=== PATIENT | female | born 1985 | race Caucasian/White ===

== ENCOUNTER 2018-06-19 20:08 | Emergency (ER) | payer OTHER, SELFPAY ==
[2018-06-19 20:08] VITALS: BMI 34.0
--- NOTE | 2018-06-19 21:17 | ED PDOC ---
HPI: Back Time Seen by Provider: 06/19/18 20:58 Chief Complaint (Nursing): Back Pain History Per: Patient History/Exam Limitations: no limitations Additional Complaint(s): 33 yo F is currently ~6wks , c/o low back pain, pelvic pain and vaginal spotting which started today. Denies any fever, chills, vomiting, diarrhea, urinary symptoms. Has no other complaints. (-) care or prior US. Past Medical History Vital Signs: Last Vital Signs Temp 98.5 F 06/19/18 20:42 Pulse 76 06/19/18 20:42 Resp 18 06/19/18 20:42 BP 125/82 06/19/18 20:42 Pulse Ox 98 06/19/18 20:42 - Family History Family History: States: No Known Family Hx - Home Medications Home Medications: Ambulatory Orders Medication Instructions Recorded Nitrofurantoin Macrocrystals 100 mg PO BID #20 cap 06/20/18 [Macrobid] Multivit/Folic Acid/I 1 tab PO DAILY #30 tab 06/20/18 [] - Allergies Allergies/Adverse Reactions: Allergies Allergy/AdvReac Type Severity Reaction Status Date / Time No Known Allergies Allergy Verified 07/18/14 20:53 Review of Systems Constitutional: Negative for: Fever, Malaise Cardiovascular: Negative for: Chest Pain, Palpitations Respiratory: Negative for: Cough, Shortness of Breath Gastrointestinal: Positive for: Abdominal Pain. Negative for: Nausea, Vomiting Genitourinary Female: Positive for: Vaginal Bleeding. Negative for: Dysuria, Frequency, Vaginal Discharge Musculoskeletal: Positive for: Back Pain. Negative for: Neck Pain Skin: Negative for: Rash, Lesions Physical Exam - Reviewed Vital Signs Reviewed: Yes - Physical Exam Appears: Positive for: Well, Non-toxic, No Acute Distress Head Exam: Positive for: ATRAUMATIC, NORMAL INSPECTION, NORMOCEPHALIC Skin: Positive for: Normal Color, Warm, DRY Eye Exam: Positive for: EOMI, Normal appearance, PERRL ENT: Positive for: Normal ENT Inspection Neck: Positive for: Normal, Painless ROM, Supple Cardiovascular/Chest: Positive for: Regular Rate, Rhythm. Negative for: Murmur Respiratory: Positive for: Normal Breath Sounds. Negative for: Rhonchi, Wheezing Gastrointestinal/Abdominal: Positive for: Normal Exam, Soft. Negative for: Tenderness, Mass, Guarding, Rebound Back: Positive for: Normal Inspection. Negative for: L CVA Tenderness, R CVA Tenderness, Vertebral Tenderness Extremity: Positive for: Normal ROM. Negative for: Tenderness, Swelling Neurologic/Psych: Positive for: Alert, photo engraver II-XII (intact), Oriented (x3). Negative for: Motor/Sensory Deficits - Laboratory Results Result Diagrams: 06/19/18 22:30 06/19/18 22:30 - ECG O2 Sat by Pulse Oximetry: 98 Medical Decision Making Medical Decision Making: Plan : - Labs - Udip - US TV Uhcg : (+) Udip : +large leuks, +moderate blood Labs reviewed : O+, beta quant 53,575 US TV : FINDINGS: Gestation: Single live intrauterine . A yolk sac is identified. pole is seen with a crown-rump length of 0.6 cm, estimating a gestational age of 6 weeks and 3 days. Cardiac activity is detected with heart rate of 141 beats per minute. Cervix is closed. Placenta/amniotic fluid: Cannot be adequately evaluated due to the early gestational age. Uterus/cervix: Unremarkable. No myometrial mass. Ovaries: Unremarkable. No mass. Free fluid: No free fluid. IMPRESSION: Single live intrauterine with an estimate of gestational age of 6 weeks and 3 days. Dictated and Authenticated by: Luiz Yoder MD 06/19/2018 10:57 PM Eastern Time ([place] & [place]) On re-evaluation, patient reports no vaginal bleeding. On exam, patient remains AAOx3, in no acute distress. Abdomen soft, non-tender. Diagnostic results d/w the patient in great detail. Patient medicated with macrobid po for UTI. Patient instructed to follow-up with new accounts banking representative in 2 days without fail. Advised to take medication as prescribed. Return to the emergency room at any time for any new or worsening symptoms. Patient states she fully agrees with and understands discharge instructions. States that she agrees with the plan and disposition. Verbalized and repeated discharge instructions and plan. I have given the patient opportunity to ask any additional questions. Disposition - Clinical Impression Clinical Impression: UTI (urinary tract infection), Abdominal pain during - Patient ED Disposition Is Patient to be Admitted: No Counseled Patient/Family Regarding: Studies Performed, Diagnosis, Need For Followup, Rx Given - Disposition Referrals: [facility] [Outside] [facility] [Outside] Disposition: Routine/Home Disposition Time: 00:00 Condition: STABLE Additional Instructions: Thank you for letting us take care of you today. You were treated for UTI, , abdominal pain. The emergency medical care you received today was directed towards the acute presenting symptoms. If you were prescribed any medication, please fill it and give as directed. It may take several days for your symptoms to resolve. Return to the Emergency Department at any time if symptoms worsen, do not improve, or if any other problems arise. Please contact new accounts banking representative in 2 days for re-evaluation and follow up. Bring any paperwork you were given at discharge with you along with any medications to your follow up visit. Our treatment cannot replace ongoing medical care by a primary care provider (PCP) outside of the emergency department. Thank you for allowing the [facility] team to be part of your care today. If you had a urine culture test done : We will call you regarding any positive results Prescriptions: Nitrofurantoin Macrocrystals [Macrobid] 100 mg PO BID #20 cap Multivit/Folic Acid/I [] 1 tab PO DAILY #30 tab Instructions: Urinary Tract Infections in Adults, Acute Abdomen (Belly Pain) Forms: [employer] (Brazilian), [facility] ED School/Work Excuse Print Language: NORWEGIAN
[2018-06-19 22:46] LABS: BASO # 0.1 K/uL (0.0-0.2); BASO % 0.8 % (0.0-2.0); EOS # 0.5 K/uL (0.0-0.7); EOS % 3.2 % (0.0-4.0); HEMOGLOBIN 12.5 g/dL (12.0-16.0); LYMPH # 3.9 K/uL (1.0-4.3); LYMPH % 26.6 % (20.0-40.0); MEAN CELL VOLUME 92.7 fl (81.0-99.0); MEAN CORPUSCULAR HEMOGLOBIN 30.6 pg (27.0-31.0); MEAN PLATELET VOLUME 8.9 fl (7.2-11.7); MONO # 1.1 K/uL (0.0-0.8); MONO % 7.7 % (0.0-10.0); NEUT # 9.1 K/uL (1.8-7.0); NEUT % 61.7 % (50.0-75.0); NRBC % 0.1 % (0.0-0.0); RBC 4.08 Mil/uL (3.80-5.20); RED CELL DISTRIBUTION WIDTH 14.7 % (11.5-14.5); WHITE BLOOD COUNT 14.7 K/uL (4.8-10.8)
[2018-06-19 22:57] LABS: BLOOD UREA NITROGEN 9 mg/dl (7-17); CALCIUM 9.2 mg/dL (8.4-10.2); GFR AFRICAN-AMERICAN > 60; GFR NON-AFRICAN AMERICAN > 60
[2018-06-20 01:41] VITALS: BP 118/68; PULSE 78; RESP 14; TEMP 98.2
[2018-06-20 02:32] VITALS: O2SAT 98
--- NOTE | 2018-06-20 09:30 | US ---
Date of service: 06/19/2018 PROCEDURE: OB Pelvic Ultrasound HISTORY: bleeding, 6 weeks preg LMP: 05/05/2018 COMPARISON: No relevant prior imaging. FINDINGS: UTERUS: Gestational sac: Single intrauterine gestation. Measures 2.1 cm compatible with estimated gestational age of 6 weeks, 4 days. Yolk sac: Measures 0.3 cm. pole: [place]-rump length measures 0.6 cm compatible with estimated gestational age of 6 weeks, 3 days. Heart rate: 141 bpm. age (Ultrasound estimated): 6 weeks, 4 days Kristi-gestational hemorrhage: None. Date of delivery (Ultrasound estimated) : 02/08/2019 Uterus measures 8.8 x 4.7 x 5.1 cm. Anteverted. Normal in size and appearance. CERVIX: Measures 3.8 cm. Long and closed. No cervical abnormality seen. RIGHT OVARY: Measures 2.2 x 1.3 x 2.6 cm. No mass lesion. Normal flow. LEFT OVARY: Measures 2.6 x 1.9 x 1.8 cm. No solid mass. Normal flow. FREE FLUID: None. OTHER FINDINGS: None. IMPRESSION: Single live intrauterine gestation with average ultrasound age 6 weeks, 4 days. heart rate 141 beats per minute. Cervix long and closed.
== END 2018-06-20 00:30 | disposition home or self-care (01) ==
LOC: H.ER 20:08
DX: O23.41 Unspecified infection of urinary tract in pregnancy, first trimester (principal); O26.891 Other specified pregnancy related conditions, first trimester; Z3A.01 Less than 8 weeks gestation of pregnancy

== ENCOUNTER 2018-08-07 10:09 | Emergency (ER) | payer SELFPAY ==
[2018-08-07 10:10] VITALS: BMI 34.0
[2018-08-07 10:15] VITALS: RESP 17
--- NOTE | 2018-08-07 11:15 | ED PDOC ---
HPI: Female Pain Time Seen by Provider: 08/07/18 10:55 Chief Complaint (Nursing): Female Genitourinary Chief Complaint (Provider): Female Genitourinary History Per: Patient History/Exam Limitations: no limitations Onset/Duration Of Symptoms: Hrs (x 12) Current Symptoms Are (Timing): Still Present Quality Of Discomfort: "Pain" Additional Complaint(s): 33 year old female presents to the ED with mild vaginal bleeding and intermittent abdominal pain since early this morning. Patient reports after intercourse last night, she experienced mild vaginal bleeding that resolved by 2 am. This morning she started to have intermittent and sharp suprapubic pain, ranked as 5/10. She did not take any medications before arrival. Her previous pregnancies were delivered vaginally and patient has history of placenta previa. Patient's only care was in this ED on June 19 and daily vitamins. Offers no other complaints. PMD: none Abnormal Vaginal Bleeding: Yes Last Menstral Period: May 05 : 3 Para: 2 Past Medical History Reviewed: Historical Data, Nursing Documentation, Vital Signs Vital Signs: Last Vital Signs Temp 98.8 F 08/07/18 10:14 Pulse 95 H 08/07/18 10:14 Resp 17 08/07/18 10:14 BP 126/77 08/07/18 10:14 Pulse Ox 99 08/07/18 10:14 - Medical History PMH: No Chronic Diseases - Surgical History Surgical History: No Surg Hx - Family History Family History: States: Unknown Family Hx - Social History Current smoker - smoking cessation education provided: No Alcohol: None Drugs: Denies - Home Medications Home Medications: Ambulatory Orders Medication Instructions Recorded Nitrofurantoin Macrocrystals 100 mg PO BID #20 cap 06/20/18 [Macrobid] Multivit/Folic Acid/I 1 tab PO DAILY #30 tab 06/20/18 [] - Allergies Allergies/Adverse Reactions: Allergies Allergy/AdvReac Type Severity Reaction Status Date / Time No Known Allergies Allergy Verified 08/07/18 10:54 Review of Systems ROS Statement: Except As Marked, All Systems Reviewed And Found Negative Gastrointestinal: Positive for: Abdominal Pain Genitourinary Female: Positive for: Vaginal Bleeding Physical Exam - Reviewed Nursing Documentation Reviewed: Yes Vital Signs Reviewed: Yes - Physical Exam Comments: GENERAL APPEARANCE: Patient is awake, alert, oriented x 3, in no acute distress. SKIN: Warm, dry; (-) cyanosis. EYES: (-) conjunctival pallor. ENMT: Mucous membranes _moist. Airway patent: (-) stridor. Pharynx: (-) swelling, (-) erythema. NECK: (-) tenderness, (-) stiffness, (-) lymphadenopathy. CHEST AND RESPIRATORY: (-) wheezing; (-) rales, (-) rhonchi, (-) rub; breath sounds equal bilaterally. HEART AND CARDIOVASCULAR: (-) irregularity; (-) murmur, (-) gallop. ABDOMEN AND GI: Soft; (+) mild suprapubic tenderness. EXTREMITIES: (-) deformity, (-) edema. NEURO AND PSYCH: Mental status as above; (-) focal findings. - Laboratory Results Result Diagrams: 08/07/18 11:36 08/07/18 11:36 Urine POC: Positive Urine dip results: Positive for: Blood (large), Protein (30). Negative for: Leukocyte Esterase, Nitrate, Ketones, Glucose, Bilirubin - ECG O2 Sat by Pulse Oximetry: 99 (RA) Pulse Ox Interpretation: Normal Medical Decision Making Medical Decision Makin:13 Impression: abdominal pain, vaginal spotting in --BMP --Tylenol 650 mg PO --US OB transvag --Urine preg --Urine dip --IV access --CBC with differential --Re-evaluation 1115 Per review of old charts, patient with O+ blood. 1215 Lab reviewed and grossly unremarkable. H&H stable. 1335 PROCEDURE: OB Pelvic Ultrasound HISTORY: spotting s/p intercourse COMPARISON: None available. FINDINGS: UTERUS: Single Live intrauterine gestation. CRL equivalent to 11 weeks 0 days gestatioin Gestational sac diameter equivalent to 11 weeks 3 days gestation age (Ultrasound estimated): 11 weeks 2 days Date of delivery (Ultrasound estimated) : 02/24/2019 No detectable cardiac activity. Kristi-gestational hemorrhage: None. Uterus measures 9.2 x 8.4 x 6.8 cm. No mass CERVIX: The cervix measures 3.6 cm in length. Trace endocervical fluid is noted. RIGHT OVARY: Measures 3.0 x 1.9 x 1.1 cm. No mass. Normal flow. LEFT OVARY: Measures 2.7 x 2.5 x 1.8 cm. No mass. Normal flow. FREE FLUID: None. OTHER FINDINGS: None. IMPRESSION: Nonviable gestation of approximately 11 weeks 2 days gestational age. No detectable cardiac activity. No subchorionic hemorrhage. Otherwise unremarkable. Consult placed to OBGYN semiconductor packages leak tester in light of U/S findings. 1335 Case discussed with ELVIRA Kline fellow. Agreeable to evaluation in ER. Patient notified of results using inbound sales advisor #[phone]. 4481 Udip reviewed. 4195 Patient seen at bedside by ELVIRA Reyes semiconductor packages leak tester - see consult note. Patient refused D&C at this time. Patient has a follow up appt arranged for Friday. On re-evaluation, patient reports no additional symptoms. On exam, patient remains AAOx3, in no acute distress. Lungs CTA, cardiac RRR, abdomen soft, nontender, repeat neuro exam shows no focal findings. Vitals stable. Lab/Diagnostic results d/w with the patient in great detail. Diagnosis of demise d/w patient. Based on history, exam, and diagnostic results, plan will be for outpatient follow up with OBGYN. Patient instructed to follow up with PMD / referral provided / the clinic in 1-2 days without fail. Advised to take medication as prescribed. Return to the emergency room at any time for any new or worsening symptoms. Patient states she agrees with and understandings discharge instructions. States that she agrees with the plan and disposition. Verbalized and repeated discharge instructions and plan. I have given the patient opportunity to ask any additional questions. Scribe Attestation: Documented by Leeanne Flores, acting as a scribe for Rufina Ambriz PA-C Provider Scribe Attestation: All medical record entries made by the Scribe were at my direction and personally dictated by me. I have reviewed the chart and agree that the record accurately reflects my personal performance of the history, physical exam, medical decision making, and the department course for this patient. I have also personally directed, reviewed, and agree with the discharge instructions and disposition. Disposition - Clinical Impression Clinical Impression: demise, Vaginal bleeding - Patient ED Disposition Is Patient to be Admitted: No Counseled Patient/Family Regarding: Studies Performed, Diagnosis, Need For Followup, Rx Given - Disposition Referrals: [facility] [Outside] Disposition: Routine/Home Disposition Time: 15:51 Condition: FAIR Additional Instructions: La atencin mdica de emergencia que recibi hoy estaba dirigida a isabelle sntomas agudos. Si se le recetaron medicamentos, llnelos en la farmacia y tmelos segn las indicaciones. Isabelle sntomas pueden tardar varios deal en resolverse. Regrese al departamento de emergencia si isabelle sntomas empeoran, no mejoran o si tiene algn otro problema. Comunquese con cruz mdico / proveedor / clnica remitido en 2 deal para brendan evaluacin adicional. El tratamiento en el departamento de emergencia no puede reemplazar la atencin mdica en curso por un mdico de atencin primaria fuera del departamento de emergencia. Instructions: Dealing With Miscarriage, Miscarriage Forms: [employer] (Icelandic) Print Language: [place] - POA Present On Arrival: None Results - Lab Results Lab Results: 08/07/18 08/07/18 11:36 11:36 WBC 9.3 RBC 4.26 Hgb 13.5 Hct 39.3 MCV 92.1 MCH 31.6 H MCHC 34.3 RDW 14.8 H Plt Count 278 MPV 9.0 Neut % (Auto) 60.3 Lymph % (Auto) 23.4 Tate % (Auto) 9.7 Eos % (Auto) 6.1 H Baso % (Auto) 0.5 Neut # (Auto) 5.6 Lymph # (Auto) 2.2 Tate # (Auto) 0.9 H Eos # (Auto) 0.6 Baso # (Auto) 0.0 Sodium 139 Potassium 4.0 Chloride 107 Carbon Dioxide 24 Anion Gap 12 BUN 6 L Creatinine 0.5 L Est GFR ( Amer) > 60 Est GFR (Non-Af Amer) > 60 Random Glucose 95 Calcium 9.6
[2018-08-07 11:44] LABS: BASO % 0.5 % (0.0-2.0); EOS # 0.6 K/uL (0.0-0.7); EOS % 6.1 % (0.0-4.0); HEMOGLOBIN 13.5 g/dL (12.0-16.0); LYMPH # 2.2 K/uL (1.0-4.3); LYMPH % 23.4 % (20.0-40.0); MEAN CELL VOLUME 92.1 fl (81.0-99.0); MEAN CORPUSCULAR HEMOGLOBIN 31.6 pg (27.0-31.0); MEAN CORPUSCULAR HGB CONC 34.3 g/dL (33.0-37.0); MONO # 0.9 K/uL (0.0-0.8); MONO % 9.7 % (0.0-10.0); NEUT # 5.6 K/uL (1.8-7.0); NEUT % 60.3 % (50.0-75.0); RBC 4.26 Mil/uL (3.80-5.20); RED CELL DISTRIBUTION WIDTH 14.8 % (11.5-14.5); WHITE BLOOD COUNT 9.3 K/uL (4.8-10.8)
[2018-08-07 11:52] LABS: BLOOD UREA NITROGEN 6 mg/dl (7-17); CALCIUM 9.6 mg/dL (8.4-10.2); GFR NON-AFRICAN AMERICAN > 60
--- NOTE | 2018-08-07 13:30 | US ---
PROCEDURE: OB Pelvic Ultrasound HISTORY: spotting s/p intercourse COMPARISON: None available. FINDINGS: UTERUS: Single Live intrauterine gestation. CRL equivalent to 11 weeks 0 days gestatioin Gestational sac diameter equivalent to 11 weeks 3 days gestation age (Ultrasound estimated): 11 weeks 2 days Date of delivery (Ultrasound estimated) : 02/24/2019 No detectable cardiac activity. Kristi-gestational hemorrhage: None. Uterus measures 9.2 x 8.4 x 6.8 cm. No mass CERVIX: The cervix measures 3.6 cm in length. Trace endocervical fluid is noted. RIGHT OVARY: Measures 3.0 x 1.9 x 1.1 cm. No mass. Normal flow. LEFT OVARY: Measures 2.7 x 2.5 x 1.8 cm. No mass. Normal flow. FREE FLUID: None. OTHER FINDINGS: None. IMPRESSION: Nonviable gestation of approximately 11 weeks 2 days gestational age. No detectable cardiac activity. No subchorionic hemorrhage. Otherwise unremarkable.
--- NOTE | 2018-08-07 15:58 | CP.PCM.PN ---
Subjective - Date & Time of Evaluation Date of Evaluation: 08/07/18 Time of Evaluation: 15:59 - Subjective Subjective: patient presents to [facility] demise at 11 weeks sonogram revealed no cardiac act Objective - Vital Signs/Intake and Output Vital Signs (last 24 hours): Temp Pulse Resp BP Pulse Ox 98.8 F 95 H 17 126/77 99 08/07/18 10:14 08/07/18 10:14 08/07/18 10:14 08/07/18 10:14 08/07/18 15:55 - Labs Labs: 08/07/18 11:36 08/07/18 11:36 Assessment and Plan - Assessment and Plan (Free Text) Plan: patient noted to have a m Patient was advised to suction D&C Patient declines patient states she would second opinion Patient has appointment on Fridaywith PMD The patient was counseled re r/b/a to surgery and expaectant managment all qustions answered patients wishes respected
[2018-08-07 16:40] VITALS: BP 114/74; PULSE 83; TEMP 98.6; O2SAT 100
== END 2018-08-07 16:21 | disposition home or self-care (01) ==
LOC: H.ER 10:09
DX: O36.4XX1 Maternal care for intrauterine death, fetus 1 (principal); Z3A.11 11 weeks gestation of pregnancy